=== PATIENT | female | born 1995 | race Caucasian/White ===

== ENCOUNTER → 2018-06-02 | Outpatient (CLI) | payer SELFPAY ==
[~2018-06-02] MED LIST: IOPAMIDOL 76% 75 ML INFUS BTL 75 ML ONE; NS(*) 0.9% 50 ML BAG 50 ML ONE
== END ==
LOC: CT 15:17
PROVIDERS: ATTEND Nurse Practitioner Family
DX: Z02.9 Encounter for administrative examinations, unspecified (principal)
CPT/HCPCS: 71275; J7050; Q9967

== ENCOUNTER → 2018-06-02 | Outpatient (REF) | payer OTHER ==
[2018-06-02 14:25] LABS: PLATELET COUNT, AUTOMATED 405 K/uL (150-450)
== END ==
PROVIDERS: ATTEND Nurse Practitioner Family
DX: R04.2 Hemoptysis (principal)
CPT/HCPCS: 82040; 82247; 82310; 82374; 82435; 82565; 82947; 84075; 84132; 84155; 84295; 84450; 84460; 84520; 85025; 85379